=== PATIENT | male | born 1945 | race Caucasian/White ===

== ENCOUNTER 2018-02-11 23:55 | Observation (INO) | payer MEDICARE, OTHER ==
[~2018-02-11] VITALS: Ht 195.6 cm; Wt 141.1 kg
[2018-02-12] VITALS (10 sets, daily range): BP systolic 124–168; BP diastolic 66–79
[2018-02-12] MEDS ORDERED: PRESERVISION A1 EACH PO (00:09)
[2018-02-12] MEDS ORDERED: FLOMAX0.4 MG PO (00:09)
[2018-02-12] MEDS ORDERED: LO-DOSE ASPIRIN81 M1 PO (00:10)
[2018-02-12] MEDS ORDERED: COZAAR100 MG PO (00:10)
[2018-02-12] MEDS ORDERED: AMLODIPINE BESY10 MG PO (00:10)
[2018-02-12] MEDS ORDERED: TIMOLOL GL0.5 %/5 M1 OPHTHALMIC (00:11)
[2018-02-12] MEDS ORDERED: CYMBALTA60 MG PO (00:11)
[2018-02-12] MEDS ORDERED: ALPHAGAN P5 ML OPHTHALMIC (00:13)
[2018-02-12] MEDS ORDERED: METAMUCIL PLUS1 EACH PO (00:14)
[2018-02-12] MEDS ORDERED: ULTRAM 50MG TAB50 MG PO (00:14)
[2018-02-12] MEDS ORDERED: TYLENOL PM EX-1 EACH PO (00:14)
[2018-02-12] MEDS ORDERED: IBUPROFEN 400400 M2 PO (00:15)
[2018-02-12 00:53] LABS: ABSOLUTE EOSINOPHILS 0.4 thou/uL (0.0-0.7); ABSOLUTE LYMPHOCYTES 1.9 thou/uL (0.8-5.3); ABSOLUTE MONOCYTES 0.8 thou/uL (0.0-1.2); ABSOLUTE NEUTROPHILS 3.2 thou/uL (1.6-8.1); BASOPHILS 0.5 %; HEMATOCRIT 41.7 % (42.0-52.0); LYMPHOCYTES 29.4 %; MCH 30.5 pg (26.0-34.0); MCHC 33.6 g/dL (28.0-37.0); MCV 90.7 fL (80.0-100.0); MPV 8.3 fl. (7.2-11.1); NUCLEATED RBCS 0 /100WBC; PLATELET COUNT* 193 thou/uL (150-400); POLYS 51.1 %; RBC 4.59 mil/uL (4.50-6.00); RDW-CV 13.9 % (10.5-14.5); WBC 6.4 thou/uL (4.0-11.0)
[2018-02-12 01:00] LABS: CALCIUM 8.7 mg/dL (8.5-10.1); CREATININE 0.8 mg/dL (0.6-1.3); POTASSIUM 3.8 mmol/L (3.5-5.1)
[2018-02-12 01:05] LABS: SALICYLATE < 2.8 mg/dL (2.8-20.0)
[2018-02-12 01:05] LABS: ALBUMIN 3.7 g/dL (3.4-5.0); TOTAL BILIRUBIN 0.5 mg/dL (<0.1-1.0)
[2018-02-12 01:06] LABS: ACETAMINOPHEN < 2 ug/mL (10-30)
[2018-02-12 03:58] LABS: URINE BILIRUBIN NEGATIVE (Negative); URINE BLOOD 1+ (Negative); URINE CLARITY CLEAR; URINE COLOR YELLOW; URINE GLUCOSE-RANDOM NEGATIVE (Negative); URINE KETONES NEGATIVE (Negative); URINE LEUKOCYTES-REFLEX NEGATIVE (Negative); URINE NITRITE-REFLEX NEGATIVE (Negative); URINE PROTEIN NEGATIVE (Negative); URINE SPECIFIC GRAVITY >= 1.030 (1.005-1.030); URINE UROBILINOGEN 0.2 E.U./dl (0.2-1.0)
[2018-02-12 04:06] LABS: AMP/METHAMP Negative (Negative); BARBITURATES Negative (Negative); BENZODIAZEPINES Negative (Negative); COCAINE Negative (Negative); METHADONE Negative (Negative); OPIATES Negative (Negative); PCP Negative (Negative); THC Negative (Negative)
[2018-02-12 05:29] LABS: CASTS None Seen /LPF (None Seen); MUCUS 0-3 Light strn/LPF (None Seen); SQUAMOUS 0-3 Few /LPF (0-3)
[2018-02-12 05:30] LABS: URINE RBC 3-10 Few /HPF (0-2); URINE WBC-REFLEX 0-5 Rare /HPF (0-5)
[2018-02-12 05:31] LABS: BACTERIA-REFLEX 1-9 Few /HPF (None Seen); CALCIUM OXALATE 4-10 Moderate /LPF (None Seen)
--- NOTE | 2018-02-12 06:22 | NUR ---
PT ADMITTED TO ICU AT 0300 FOR ACCIDENTAL OVERDOSE. PT STATES HE PUTS ALL DAILY MEDS IN A PILL BOTTLE OR EVERY DAY OF THE WEEK. PT WAS DRIVING AT NIGHT AND REACHED IN HIS POCET FOR PILL BOTTLE CONTAINING HIS MEDS AND EMPTIED THEM INTO HIS MOUTH AND SWALLOWED THEM. PT STATED IT WAS DARK AND HE ASSUMED HE TOOK MEDS INTENDED FOR LAST NIGHT. HE OR HIS DISCOVERED HE HAD SWALLOWED PILLS FROM NEWLY FILLED PRESCRIPTION FOR TRAMADOL. THEY ESTIMATE HE INGESTED 10 TO 20 TRAMADOL. 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 KATE GUILLEN INFORMED ED THAT RESPIRATORY DEPRESSION AND SEIZURES CAN OCCUR FROM OVER DOSE OF TRAMADOL. PT HAS BEEN CALM AND COOPERATIVE. O2 SAT 96-98% SINCE ARRIVAL. PT WEARING PERSONAL CPAP WHILE SLEEPING. RESPIRATIONS EVEN AND NON LABORED. NO APNEA OR DESATURATION NOTED. NO SEIZURE ACTIVITY NOTED , WILL CONTINUE TO MONITOR CLOSELY.
--- NOTE | 2018-02-12 10:03 | NUR ---
ASSUMED PT CARE 0730. PT A/O X'S 4. NO SEIZURE ACTIVITY OR DIFFICULTY BREATHING. VSS. HR IN 40'S. NORVASC AND [place] HELD. TRAMADOL ORDERED. PAGED THAT DUE TO PT'S ADMISSION HISTORY TRAMADOL WOULD BE HELD. ACKNOWLEDGED PAGED. TRAMADOL HELD. PT EDUCATED ON PLAN OF CARE. PT TO BE DISCHARGED AFTER 1300 IF PT REMAINS ASSYMPTOMATIC.
--- NOTE | 2018-02-12 13:15 | NUR ---
POISON CONTROLLED CALLED AND RECOMMENDED PT HOLD TRAMADOL UNTIL 02/13. PT INSTRUCTED TO SPEAK TO PCP BEFORE RESUMING TRAMADOL. PT REPORTS HE DOES NOT NEED TO TAKE AT THIS TIME. PT INSTRUCTED ON F/U APPOINTMENTS. PT REPORTS HAS APPOINTMENT IN FEBRUARY TO SEE PCP. IV'S DC'D. 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 ALL BELONGINGS PACKED UP AND LEFT WITH PT. PT AND SPOUSE REQUESTED PT'S LABS/ADMISSION INFO. PT SIGNED RELEASE OF INFO.
--- NOTE | 2018-02-12 14:38 | EKG ---
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 : 1945 Requested By: Gabrielle Jiménez Order Number: [id number] MD: Gerald Richards Measurements Intervals [place] Rate: 50 P: 28 WA: 176 QRS: -41 QRSD: 124 T: 41 QT: 460 QTc: 420 Interpretive Statements Sinus rhythm Nonspecific IVCD with LAD No previous ECG available for comparison Electronically Signed On 02-12-2018 14:38:15 CDT by Gerald Richards [email or web address] <ELECTRONICALLY SIGNED> By: Gerald Richards MD, [facility] 02/12/18 1438 0042 004 Gerald Richards MD, [facility] /EPI
== END 2018-02-12 13:20 | disposition home or self-care (01) ==
LOC: M.ERS 23:55 → M.ICU 02-12 01:32 → M.TBA-ER 02-12 01:32 → M.ICU 02-12 02:49
PROVIDERS: Personal Emergency Response Attendant; ADMIT Internal Medicine
DX: T40.4X1A Poisoning by other synthetic narcotics, accidental (unintentional), initial encounter (principal); G89.29 Other chronic pain; I10 Essential (primary) hypertension; M19.90 Unspecified osteoarthritis, unspecified site; N40.0 Benign prostatic hyperplasia without lower urinary tract symptoms; F32.9 Major depressive disorder, single episode, unspecified; Z87.891 Personal history of nicotine dependence; Z98.890 Other specified postprocedural states